=== PATIENT | male | born 1950 | race Caucasian/White ===

== ENCOUNTER 2016-08-12 00:39 | Observation (INO) | payer OTHER ==
[~2016-08-12] VITALS: Ht 172.7 cm; Wt 99.1 kg
[~2016-08-12 00:39] MED LIST: ACID CONTROL150 MG PO; ASPIR-LOW81 MG PO; ASPIR-TRIN325 M1 PO; ASPIRIN325 MG PO; ATORVASTATIN CA40 MG PO; COLACE100 MG PO; COREG12.5 M1 PO; COREG25 M1 PO; CRESTOR40 MG PO; Coreg PO; ECOTRIN325 MG PO; EQUATE ACID REDUCER; FISH OIL 1,0001 EA10 PO; FISH OIL 1,0001 EAC7 PO; FLOMAX0.4 MG PO; Fish Oil PO; GLUCOPHAGE500 MG PO; Glucophage PO; HYDROCHLOROTHIA25 MG PO; LIPITOR40 MG PO; LISINOPRIL5 MG PO; Lipitor PO; METFORMIN HCL500 MG PO; METOPROLOL SUCC25 MG PO; MIRALAX17 GM PO; PERCOCET 7.51 TABLET PO; PLAVIX75 MG PO; RANITIDINE HCL150 MG PO; ZOFRAN ODT8 MG PO; ZYRTEC10 M2 PO
[2016-08-12 01:32] LABS: EOSINOPHIL (%) 4.7 % (0-5); EOSINOPHIL COUNT 0.4 K/uL (0-0.3); HEMATOCRIT 38.2 % (38.0-50.0); IMMATURE GRANULOCYTE (%) 0.1 % (0.0-0.7); IMMATURE GRANULOCYTE COUNT 0.1 K/uL; LYMPHOCYTE COUNT 3.1 K/uL (1.0-2.8); MCH 29.3 PG (29.0-34.0); MCHC 35.1 G/DL (30.0-36.0); MCV 83.6 FL (86-99); MEAN PLAT.VOLUME 10.2 uM^3 (9.0-12.4); MONOCYTE (%) 11.9 % (3-12); MONOCYTE COUNT 0.9 K/uL (0-0.8); NEUTROPHIL COUNT 3.3 K/uL (1.8-6.4); PLATELET COUNT 200 K/uL (156-360); RBC DIS.WIDTH-CV 12.6 % (11.8-14.6); RBC DIS.WIDTH-SD 38.2 % (39-53); RED BLOOD COUNT 4.57 M/uL (4.00-5.50); WHITE BLOOD COUNT 7.7 K/uL (4.1-10.2)
[2016-08-12 01:49] LABS: CHLORIDE 107 mEq/L (99-109); POTASSIUM 3.9 mEq/L (3.7-5.4); SODIUM 142 mEq/L (136-147)
[2016-08-12 01:50] LABS: GLUCOSE 84 mg/dL (70-99)
[2016-08-12 01:52] LABS: ANION GAP 10 MEQ/L (2-14)
[2016-08-12 01:54] LABS: GFR ESTIMATE (CALCULATED) > 59 mL/min/
[2016-08-12 01:55] LABS: UREA NITROGEN (BUN) 17 mg/dL (9-23)
[2016-08-12 01:59] LABS: TROP-I INTERPRETATION NEGATIVE; TROPONIN-I < 0.01 ng/mL (0.0-0.30)
[2016-08-12 04:25] LABS: HDL CHOLESTEROL 30 MG/DL (Desirable>=40); LDL CHOLESTEROL 74 mg/dL (Desirable<100); NON-HDL CHOLESTEROL 125 mg/dL (Desirable<160); TOTAL CHOLESTEROL 155 mg/dL (Desirable<200); TRIGLYCERIDES 253 MG/DL (Normal: <150)
[2016-08-12 05:24] VITALS: BP 123/65
[2016-08-12 07:19] LABS: Estimated Average Glucose 140 mg/dL (70-123); HEMOGLOBIN A1c (GLYCOHEMOGLOB) 6.5 % HGB (Below 5.7)
[2016-08-12 07:46] VITALS: BP 116/59
[2016-08-12 09:00] LABS: TROP-I INTERPRETATION NEGATIVE; TROPONIN-I < 0.01 ng/mL (0.0-0.30)
[2016-08-12 09:15] LABS: CREATINE KINASE 58 IU/L (1-294); TOTAL CK 58 IU/L (1-294)
[2016-08-12 10:24] LABS: CK-MB 0.7 ng/mL (0.0-4.9)
[2016-08-12 11:29] VITALS: BP 117/69
[2016-08-12 14:08] LABS: CREATINE KINASE 56 IU/L (1-294); TOTAL CK 56 IU/L (1-294)
[2016-08-12 14:15] LABS: TROP-I INTERPRETATION NEGATIVE; TROPONIN-I < 0.01 ng/mL (0.0-0.30)
[2016-08-12 14:33] LABS: CK-MB 0.7 ng/mL (0.0-4.9)
[2016-08-12] MEDS ORDERED: COREG12.5 M1 PO (15:02)
[2016-08-12 15:35] VITALS: BP 105/57
== END 2016-08-12 16:00 | disposition home or self-care (01) ==
LOC: EME 00:39 → EDOF 03:23 → 4SOUTH 05:13
PROVIDERS: Emergency Medicine; Internal Medicine
DX: R07.9 Chest pain, unspecified (principal); I25.10 Atherosclerotic heart disease of native coronary artery without angina pectoris; Z95.5 Presence of coronary angioplasty implant and graft; I10 Essential (primary) hypertension; E78.5 Hyperlipidemia, unspecified; E11.9 Type 2 diabetes mellitus without complications; R94.31 Abnormal electrocardiogram [ECG] [EKG]; Z87.891 Personal history of nicotine dependence; Z79.82 Long term (current) use of aspirin; Z79.84 Long term (current) use of oral hypoglycemic drugs
CPT/HCPCS: 71010; 80048; 80061; 82550 91; 82553; 83036; 84484; 85025; 93005; 99281; 99285; G0378

== ENCOUNTER 2018-01-31 21:38 | Emergency (ER) | payer OTHER ==
[~2018-01-31] VITALS: Ht 172.7 cm; Wt 99.1 kg
[2018-01-31 23:25] VITALS: BP 151/87
== END 2018-01-31 23:10 | disposition home or self-care (01) ==
LOC: EME 21:38
DX: S61.012A Laceration without foreign body of left thumb without damage to nail, initial encounter (principal); W26.8XXA Contact with other sharp object(s), not elsewhere classified, initial encounter; Y93.89 Activity, other specified; Y92.810 Car as the place of occurrence of the external cause; Z23 Encounter for immunization; Z88.8 Allergy status to other drugs, medicaments and biological substances
CPT/HCPCS: 99281; 99284